=== PATIENT | male | born 1945 | race Two or more races ===

== ENCOUNTER 2017-03-09 10:24 | Day surgery (SDC) | payer MEDICARE, OTHER ==
[~2017-03-09] VITALS: Ht 170.2 cm; Wt 101.0 kg
[2017-03-09] MEDS ORDERED: LACTATED RINGERS 1,000 ML IV SCH (11:04)
[2017-03-09 11:20] VITALS: BP 142/84
[2017-03-09] MEDS ORDERED: ACET-1600 PO (11:20)
[2017-03-09] MEDS ORDERED: LOSA1TAB18 PO (11:20)
[2017-03-09] MEDS ORDERED: POTA20TA6 PO (11:20)
[2017-03-09] MEDS ORDERED: AMLO10TA2 PO (11:20)
[2017-03-09] MEDS ORDERED: LIDOCAINE 1%, 2ML ONE (11:28)
[2017-03-09] MEDS ORDERED: LIDOCAINE 1%, 2ML SQ PRN (11:30)
[2017-03-09] MEDS ORDERED: MITOMYCIN 40 MG in STERILE WATER 20 ML INTVESIC ONE (13:00)
[2017-03-09 13:03] LABS: PATH.CAST-FLAG NOT PRESENT; SPERM-FLAG NOT PRESENT; SRC-FLAG NOT PRESENT; XTAL-FLAG NOT PRESENT; YLC-FLAG NOT PRESENT
[2017-03-09] MEDS ORDERED: FENTANYL PF 250 MCG/5ML ONE (13:21)
[2017-03-09] MEDS ORDERED: MIDAZOLAM 1 MG/ML, 2ML ONE (13:22)
[2017-03-09] MEDS ORDERED: HYDROmorphone 1 MG/ML, 1ML ONE (14:10)
[2017-03-09] MEDS ORDERED: FENTANYL PF 100 MCG/2ML ONE (14:10)
[2017-03-09] MEDS ORDERED: OXYcodone 5 MG/5 ML ORAL.SOL UDC ONE (14:11)
[2017-03-09] MEDS: FENTANYL PF 100 MCG/2ML IV PRN ×2 (14:12→14:33)
[2017-03-09] MEDS ORDERED: OXYcodone 5 MG/5 ML ORAL.SOL UDC PO PRN (14:30)
[2017-03-09] MEDS ORDERED: ONDANSETRON 2MG/ML, 2ML IVPush PRN (14:30)
[2017-03-09] MEDS ORDERED: ACETAMINOPHEN 325 MG TABLET PO PRN (14:30)
[2017-03-09] MEDS ORDERED: hydrALAzine 20 MG/ML, 1ML IV PRN (14:30)
[2017-03-09] MEDS ORDERED: HYDROmorphone 1 MG/ML, 1ML IV PRN (14:30)
[2017-03-09] MEDS ORDERED: METOCLOPRAMIDE 5 MG/ML, 2ML IV PRN (14:30)
[2017-03-09] MEDS ORDERED: LABETALOL 5MG/ML, 20ML IV PRN (14:30)
[2017-03-09] MEDS ORDERED: ROCURONIUM 10 MG/ML ONE (16:53)
[2017-03-09] MEDS ORDERED: PROPOFOL 10 MG/ML, 20ML ONE (16:53)
[2017-03-09] MEDS ORDERED: CEFAZOLIN 1,000 MG ONE (16:53)
[2017-03-09] MEDS ORDERED: SUCCINYLCHOLINE 20 MG/ML, 10ML ONE (16:53)
[2017-03-09] MEDS ORDERED: OXYcodone/APAP 5/325MG TABLET ONE (17:40)
[2017-03-09] MEDS ORDERED: OXYcodone/APAP 5/325MG TABLET PO PRN (18:00)
== END 2017-03-09 17:46 | disposition home or self-care (01) ==
LOC: OUT 10:24
PROVIDERS: ATTEND Urology
DX: C67.2 Malignant neoplasm of lateral wall of bladder (principal); I10 Essential (primary) hypertension; G47.33 Obstructive sleep apnea (adult) (pediatric); Z72.89 Other problems related to lifestyle; F17.210 Nicotine dependence, cigarettes, uncomplicated; Z96.642 Presence of left artificial hip joint; Z98.890 Other specified postprocedural states; M19.90 Unspecified osteoarthritis, unspecified site
CPT/HCPCS: 36415; 51720; 52235; 81001; 85025; 85610; 85730; 87086; 88307; 93005; C1769; J0330; J0690; J2250; J2704; J3010; J3490; J7120; J9280

== ENCOUNTER 2017-05-10 07:07 | Day surgery (SDC) | payer MEDICARE ==
[~2017-05-10] VITALS: Ht 170.2 cm; Wt 99.0 kg
[~2017-05-10 07:07] MED LIST: ACET-1600 PO; AMLO10TA2 PO; LOSA1TAB18 PO; POTA20TA6 PO
[2017-05-10] MEDS ORDERED: LACTATED RINGERS 1,000 ML IV SCH (07:45)
[2017-05-10 07:50] VITALS: BP 115/79
[2017-05-10] MEDS ORDERED: ONDANSETRON 2MG/ML, 2ML ONE (09:10)
[2017-05-10] MEDS ORDERED: CEFAZOLIN 1,000 MG ONE (09:10)
[2017-05-10] MEDS ORDERED: DEXAMETHASONE 4 MG/ML, 1ML ONE (09:10)
[2017-05-10] MEDS ORDERED: PROPOFOL 10 MG/ML, 20ML ONE (09:10)
[2017-05-10] MEDS ORDERED: FENTANYL PF 100 MCG/2ML ONE ×2 (09:13→10:28)
[2017-05-10] MEDS ORDERED: GLYCOPYRROLATE 0.2MG/1ML ONE (10:28)
[2017-05-10] MEDS ORDERED: ACETAMINOPHEN 325 MG TABLET PO PRN (10:30)
[2017-05-10] MEDS ORDERED: MEPERIDINE/PF 25MG/0.5ML IVPush PRN (10:30)
[2017-05-10] MEDS ORDERED: GLYCOPYRROLATE 0.2MG/1ML IVPush ONE (10:30)
[2017-05-10] MEDS ORDERED: PROMETHAZINE 25 MG/ML, 1ML IV PRN (10:30)
[2017-05-10] MEDS ORDERED: OXYcodone 5 MG/5 ML ORAL.SOL UDC PO PRN (10:30)
[2017-05-10] MEDS ORDERED: hydrALAzine 20 MG/ML, 1ML IV PRN (10:30)
[2017-05-10] MEDS ORDERED: HYDROmorphone 1 MG/ML, 1ML IV PRN (10:30)
[2017-05-10] MEDS ORDERED: OPIUM/BELLADONNA SUPP.RECT 16.2-30 MG PR PRN (10:30)
[2017-05-10] MEDS ORDERED: METOPROLOL 1 MG/ML, 5ML IV PRN (10:30)
[2017-05-10] MEDS ORDERED: OPIUM/BELLADONNA SUPP.RECT 16.2-30 MG ONE (10:33)
[2017-05-10] MEDS: FENTANYL PF 100 MCG/2ML IV PRN ×3 (10:33→10:49)
[2017-05-10] MEDS ORDERED: OXYcodone 5 MG/5 ML ORAL.SOL UDC ONE (10:41)
[2017-05-10] MEDS ORDERED: HYDROmorphone 2 MG/ML, 1ML ONE (11:00)
== END 2017-05-10 13:20 ==
LOC: OUT 07:07
PROVIDERS: ATTEND Urology
DX: N30.01 Acute cystitis with hematuria (principal); N30.21 Other chronic cystitis with hematuria; I10 Essential (primary) hypertension; Z87.39 Personal history of other diseases of the musculoskeletal system and connective tissue; Z96.649 Presence of unspecified artificial hip joint; Z98.890 Other specified postprocedural states
CPT/HCPCS: 52235; 88305; J0690; J1100; J1170; J2405; J2704; J3010; J7120; J3490